=== PATIENT | male | born 1955 | race Caucasian/White ===

== ENCOUNTER 2017-10-16 00:24 | Inpatient (IN) | payer SELFPAY ==
[2017-10-16] MEDS ORDERED: Pantoprazole 40 MG VIAL ONE (00:53)
[2017-10-16] MEDS ORDERED: Fentanyl 100 MCG/2 ML VIAL ONE (00:55)
[2017-10-16] MEDS ORDERED: Midazolam HCl 2 mg/2 ml Vial ONE (00:55)
[2017-10-16 01:00] LABS: #Basophils 0.1 thou/uL (0.0-0.2); #Eosinphils 0.1 thou/uL (0.0-0.7); #Lymphocytes 0.9 thou/uL (1.20-3.40); #Monocytes 0.6 thou/uL (0.11-0.59); #Neutrophils 8.9 thou/uL (1.40-6.50); %Basophils 1.1 % (0.0-1.0); %Eosinophils 1.3 % (0.0-10.0); %Lymphocytes 8.7 % (21.0-51.0); %Monocytes 5.7 % (0.0-10.0); %Neutrophils 83.2 % (42.0-75.0); Hemoglobin 13.4 g/dL (14.0-18.0); Mean Corpuscular HGB CONC 32.3 g/dL (32.0-36.0); Mean Corpuscular Hemoglobin 31.8 pg (27.0-31.0); Mean Corpuscular Volume 98.4 fl (80.0-94.0); Mean Platelet Volume 6.9 fL (7.4-10.4); Platelet Count 181 thou/uL (130-400); RBC Distribution Width 12.9 % (11.5-14.5); Red Blood Cell (RBC) Count 4.21 mill/uL (4.70-6.10); White Blood Cell (WBC) Count 10.7 thou/uL (4.8-10.8)
[2017-10-16 01:06] LABS: INR-International Normal Ratio 1.2; PTT 23.9 SEC (22.9-36.1)
[2017-10-16] MEDS ORDERED: Piperacillin-Tazo-Dextrose,Iso 3.375 GM in Premix Bag 1 BAG IVPB SCH (01:15)
[2017-10-16 01:16] LABS: ALT (SGPT) 16 U/L (8-55); AST (SGOT) 20 U/L (5-34); Albumin 3.7 g/dL (3.5-5.0); Alkaline Phosphatase 50 U/L (40-150); Anion Gap 10 mmol/L (10-20); BUN (Urea Nitrogen) 11 mg/dL (8.4-25.7); Bilirubin, Total 0.7 mg/dL (0.2-1.2); Calc. Creatinine Clearance 0 mL/min (70-130); Calcium 9.5 mg/dL (7.8-10.44); Carbon Dioxide 36 mmol/L (22-29); Chloride 93 mmol/L (98-107); Estimated GFR-MDRD Greater than 90; Glucose 123 mg/dL (70-105); Potassium 4.5 mmol/L (3.5-5.1); Sodium 134 mmol/L (136-145)
[2017-10-16 01:20] LABS: Globulin 2.1 g/dL (2.4-3.5); Protein, Total 5.7 g/dL (6.0-8.3)
[2017-10-16] MEDS ORDERED: Ondansetron HCl/PF 4 MG/2 ML Vial IVP PRN ×2 (03:13→15:54)
[2017-10-16] MEDS ORDERED: Promethazine HCl 25 MG/ML VIAL IM PRN (03:13)
[2017-10-16] MEDS ORDERED: Morphine 4 MG/ML Carpuject SLOW IVP PRN (03:13)
[2017-10-16] MEDS ORDERED: Acetaminophen 1,000 MG in Premix Bag 1 BAG IVPB PRN (03:13)
[2017-10-16] MEDS ORDERED: Dextrose 5% in Water 1,000 ML IV PRN (03:13)
[2017-10-16] MEDS ORDERED: Morphine 4 MG/ML Carpuject IVP PRN (03:13)
[2017-10-16] MEDS ORDERED: Ondansetron ODT 4 MG TAB PO PRN (03:13)
[2017-10-16] MEDS ORDERED: Dextrose 50% Abboject 50 ML SYRINGE SLOW IVP PRN (03:13)
[2017-10-16 03:25] VITALS: BMI 19.8
[2017-10-16] MEDS ORDERED: Pantoprazole 40 MG VIAL IVP SCH (03:30)
[2017-10-16 04:03] LABS: #Eosinphils 0.1 thou/uL (0.0-0.7); #Lymphocytes 1.1 thou/uL (1.20-3.40); #Monocytes 0.7 thou/uL (0.11-0.59); #Neutrophils 6.5 thou/uL (1.40-6.50); %Basophils 0.6 % (0.0-1.0); %Eosinophils 1.8 % (0.0-10.0); %Lymphocytes 12.5 % (21.0-51.0); %Neutrophils 77.2 % (42.0-75.0); Hemoglobin 11.7 g/dL (14.0-18.0); Mean Corpuscular HGB CONC 32.5 g/dL (32.0-36.0); Mean Corpuscular Hemoglobin 32.1 pg (27.0-31.0); Mean Corpuscular Volume 98.8 fl (80.0-94.0); Mean Platelet Volume 6.9 fL (7.4-10.4); Platelet Count 166 thou/uL (130-400); RBC Distribution Width 12.7 % (11.5-14.5); Red Blood Cell (RBC) Count 3.66 mill/uL (4.70-6.10); White Blood Cell (WBC) Count 8.4 thou/uL (4.8-10.8)
[2017-10-16 04:26] LABS: ALT (SGPT) 15 U/L (8-55); AST (SGOT) 16 U/L (5-34); Alkaline Phosphatase 43 U/L (40-150); Anion Gap 10 mmol/L (10-20); BUN (Urea Nitrogen) 10 mg/dL (8.4-25.7); Bilirubin, Total 0.7 mg/dL (0.2-1.2); Calc. Creatinine Clearance 116 mL/min (70-130); Calcium 8.8 mg/dL (7.8-10.44); Carbon Dioxide 33 mmol/L (22-29); Chloride 96 mmol/L (98-107); Estimated GFR-MDRD Greater than 90; Globulin 1.9 g/dL (2.4-3.5); Glucose 119 mg/dL (70-105); Potassium 4.6 mmol/L (3.5-5.1); Protein, Total 4.9 g/dL (6.0-8.3); Sodium 134 mmol/L (136-145)
[2017-10-16] MEDS: D5 1/2 NS w/20 mEq KCL 1,000 ML IV SCH ×2 (05:00→10:39)
[2017-10-16] MEDS: Nicotine 14 MG PATCH TD SCH (08:56)
[2017-10-16] MEDS ORDERED: PROVENTIL INHALER 6.7 G (200 INHALATIONS) INH PRN (10:00)
--- NOTE | 2017-10-16 10:05 | HP ---
CHIEF COMPLAINT: Abdominal bloating. HISTORY OF PRESENT ILLNESS: This is a 62-year-old male who was transferred to [facility] last night from [facility] with a diagnosis of perforated gastric ulcer with intraabdominal hemorrhage. He prese nted here now and he was seen by me in the middle of the night and hemodynamically stable, mild diffu se abdominal pain, but normal hemoglobin and normal WBC count. Review of the CT by myself revealed q uestion of mesenteric mass, certainly a lot of ascites some of which looks bloody, but no significant free air. Because of his stable clinical state, he was admitted to the hospital for further workup. Mr. Tabares notes that he does take Aleve every morning and occasional ibuprofen. He mostly takes medicines for his COPD including Advair, Spiriva and albuterol. He notes that he has been more bloat ed over the last few weeks and had to get some larger size pants. He also notes more fluid retention in his lower extremities. Dr. Adam, primary care physician has actually put him on a fluid retentio n pill just within the last few weeks. The patient's pain is described as 5/10 diffuse mildly tender . He is hungry though this morning and does have no nausea or vomiting. He has been hemodynamically stable overnight. PAST MEDICAL HISTORY: Again includes COPD, hypertension, and fluid retention. PAST SURGICAL HISTORY: He denies. MEDICINES TAKEN DAILY: Spiriva, Advair, albuterol, losartan, Lasix, glaucoma drops. ALLERGIES: No known drug allergies. SOCIAL HISTORY: He is a smoker. Occasional alcohol, no other drugs. REVIEW OF SYSTEMS: Otherwise, negative. PHYSICAL EXAMINATION: VITAL SIGNS: Blood pressure 137/86, pulse is 69, respirations 18, temperature 98.3. HEENT: Sclerae are anicteric. Oropharynx clear. NECK: No lymphadenopathy. CHEST: Clear. HEART: Regular rate and rhythm. ABDOMEN: Diffusely distended and mildly tender without guarding or rebound. No abdominal or inguina l hernias. EXTREMITIES: 2+ pitting edema to bilateral lower extremities. LABORATORY DATA: White blood cell count is 8, hemoglobin 11.7, platelet count is 166. No bands. IN R 1.2, sodium 134, potassium 4.6, creatinine is 0.65, glucose 119, alkaline phosphatase 43. Liver fu nction tests otherwise normal. IMAGING DATA AND LABORATORY DATA: CT scan reviewed with Dr. Rosario. There is a question of muco praveena abnormality in the distal stomach. There is no free air. There is significant amount of free fl uid in the abdomen. There is a large mid mesenteric mass/hematoma without active extravasation. ASSESSMENT: Unknown etiology of this large amount of fluid, questionable mesenteric mass. There wer e some findings suggestive on the CT of a perforated gastric ulcer, although he does not have periton itis. He is not hemodynamically unstable and there is no free air. He does have a history of progre ssive abdominal distention, but no known history of cirrhosis. PLAN: We will have GI see him today, suspect he needs upper endoscopy at least to rule out mucosal a bnormality in the stomach. If that is negative, he needs a workup for intraabdominal malignancy.
[2017-10-16] MEDS: Mometasone/Formoterol 120 PUFF INHALER INH SCH (11:28)
[2017-10-16] MEDS: Ipratropium Bromide 2.5 ml Neb NEB SCH ×2 (11:28→20:11)
[2017-10-16] MEDS ORDERED: Lidocaine 1% PF 5 ML VIAL ONE (14:25)
[2017-10-16] MEDS ORDERED: Propofol 200 MG/20 ML VIAL ONE (14:25)
--- NOTE | 2017-10-16 15:43 | CON ---
DATE OF CONSULTATION: 10/16/2017 REASON FOR CONSULTATION: Midepigastric abdominal pain, possible gastric perforation. CONSULTING PHYSICIAN: Dinh Renee M.D. HISTORY OF PRESENT ILLNESS: The patient is a 62-year-old male with past medical history of COPD and hypertension, presenting with complaints of increased midepigastric abdominal pain. He states that he was in his usual state of health until approximately 2 days ago when he had the acute onset of mid epigastric/right upper quadrant abdominal pain that occurred within 3 hours of him eating lunch. He described the pain as cramping type pain, constant, nonradiating with severity of approximately 7-8/10. There were no clear exacerbating or alleviating factors associated with his pain; however, he does endorse increased heartburn over the last week, which he has been taking Tums as needed. He also endorses increased lower extremity swelling that has been present for the last 3-4 months, for which his PCP had given him diuretics. Currently, he denies any nausea, vomiting, fevers, chills, odynophagia, dysphagia, diarrhea, or constipation. Of note, he had also been taking Aleve and ibuprofen (undetermined amounts) for pain over the last 1-2 months, although he had not been taking these medications concurrently. REVIEW OF SYSTEMS: A 12-category review of systems was obtained with all responses negative except for the pertinent positives as listed in the HPI. PAST MEDICAL HISTORY: COPD, hypertension, lower extremity edema. PAST SURGICAL HISTORY: Right foot surgery. FAMILY HISTORY: Small cell lung cancer (father). SOCIAL HISTORY: Has decreased to smoking one cigar daily. Drinks approximately 2-4 beers daily. Denies any illicit drug use. OUTPATIENT MEDICATIONS: Spiriva, Advair, albuterol, losartan, Lasix, and glaucoma drops. ALLERGIES: No known drug allergies. PHYSICAL EXAMINATION: VITAL SIGNS: Temperature of 97.9, pulse 69, blood pressure 150/78, respiratory rate 20, satting 95% on room air. GENERAL: The patient is lying comfortably in bed, in no acute distress. He is alert and oriented x4. HEENT: Normocephalic, atraumatic. NECK: Supple. No JVD noted. CARDIOVASCULAR: Regular rate and rhythm with no discernible murmurs, gallops or rubs. RESPIRATORY: Clear to auscultation bilaterally with no discernible wheezes or rales. ABDOMEN: Soft, normoactive bowel sounds, increased tenderness to palpation in the midepigastric and periumbilical regions with mild to moderate distention noted that is tympanic to percussion. No guarding or rebound. EXTREMITIES: 2+ bilateral lower extremity edema to mid elder. LABORATORY DATA: CBC with white blood cell count of 8.4, hemoglobin 11.7, hematocrit 36.1, platelets 166. Chemistry with a sodium of 134, potassium 4.6, chloride 96, CO2 33, BUN 10, creatinine 0.65, glucose 119, AST 16, ALT 15, alkaline phosphatase 43, total bilirubin 0.7. IMAGING STUDIES: CT scan showing moderate wall thickness of the distal gastric body and antrum with possibility of mucosal abnormality in the distal stomach. There is no evidence of free air; however, there is a significant amount of free fluid in the abdomen. Also noted a large mid mesenteric mass/hematoma without active extravasation with the free fluid concerning for hemorrhage. ASSESSMENT AND PLAN: The patient is a 62-year-old male with past medical history of COPD and hypertension, presenting with midepigastric/right upper quadrant abdominal pain and imaging findings concerning for a mesenteric mass. Midepigastric abdominal pain The patient is presenting with a recent history of acute onset of mid epigastric /right upper quadrant abdominal pain associated with increased abdominal distention as well as a history of substernal pyrosis and lower extremity edema. He also endorses a history of recent nonsteroidal antiinflammatory drugs abuse which could potentially create gastritis and/or ulceration of the stomach with the CT scan showing mucosal abnormalities within the distal stomach and also lends itself towards a possible ulceration due to nonsteroidal antiinflammatory drugs use versus other process; however, also on the CT scan with a large mid mesenteric mass concerning either for possible malignancy or hematoma, which could be potentially contributing to his midepigastric abdominal pain. The CT scans are not necessarily consistent with a perforated gastric ulcer, although that cannot be ruled out at this time. Also, per laboratory review, he has a normal platelet count as well as normal transaminase and normal T-bilirubin which puts a diagnosis of cirrhosis further down on the list. RECOMMENDATIONS: 1. We will plan for EGD today for intraluminal evaluation of the stomach and possible gastric ulcer and/or perforation. 2. We would consider paracentesis of the intra-abdominal fluid for evaluation to determine if this is ascites versus hematoma/hemorrhage. 3. Would consider exploratory laparoscopy for determination of large mid mesenteric mass and/or with biopsy. 4. Pain control per primary team. MTDD
--- NOTE | 2017-10-16 16:09 | OP ---
DATE OF PROCEDURE: 10/16/2017 PROCEDURE: Esophagogastroduodenoscopy with biopsy. INDICATION FOR PROCEDURE: Midepigastric abdominal pain, abnormal GI imaging. DESCRIPTION OF PROCEDURE: After the risks and benefits of the procedure were explained to the patient including risks of bleeding, infection, perforation, reaction to anesthesia and/or pain, informed consent was obtained. The patient was then taken back to the endoscopy suite where deep sedation with propofol was administered via anesthesia support. The standard gastroscope was then advanced into the mouth with intubation of the esophagus, stomach and proximal small bowel with the findings listed below. The patient tolerated the procedure well with no immediate postoperative complications. FINDINGS: ESOPHAGUS: Normal appearing mucosa was seen in the proximal, mid and distal esophagus. The diaphragmatic pinch was seen at 48 cm while the GE junction was well seen at approximately 45 cm past the incisors denoting a 3 cm hiatal hernia. There was no evidence of esophagitis, erosions, ulcerations, or mass lesions. STOMACH: Normal appearing mucosa was seen in the cardia, fundus, body, antrum and incisura. However, along the greater curvature in the body of the stomach, there was extrinsic compression denoted by bulging mucosa into the lumen of the stomach. There were no associated erosions, ulcerations, mass lesions or perforation with this extrinsic compression. Additional abnormal findings were not seen in the remainder of the stomach. DUODENUM: Nodular appearing mucosa was seen in the duodenal bulb without associated erythema, erosions or ulcerations. In the second portion of the duodenum, the mucosa displayed mildly increased erythema as well as a bluish tinge underlying erythema concerning for pathology. Multiple biopsies were taken of this region and placed in a specimen jar for evaluation. Otherwise, there were no erosions, ulcerations, or mass lesions seen during this portion of the exam. IMPRESSION: 1. Mild mucosal erythema and bluish tinge to mucosa seen in the second portion of the duodenum, status post biopsies. 2. Mild nodularity of the duodenal bulb, consistent with Meg's gland hyperplasia. 3. Extrinsic compression of the gastric body from unknown etiology. 4. A 3 cm hiatal hernia. RECOMMENDATIONS: 1. Follow with primary inpatient team. 2. Would consider exploratory laparoscopy for determination of the mesenteric mass which could be potentially compressing the greater curvature of the stomach. 3. Can consider continuation of PPI 40 mg daily for acid reflux. 4. We will defer to primary team about continuation of antibiotics given lack of evidence of gastric perforation on examination today. 5. We will follow up on biopsy results. [facility]
[2017-10-16] MEDS: Timolol 0.5% Ophth Soln 5 ml Bottle EA EYE SCH (21:25)
[2017-10-16] MEDS: Pantoprazole 40 MG VIAL IVP SCH (21:48)
--- NOTE | 2017-10-16 22:13 | ULT ---
ULTRASOUND ABDOMEN LIMITED 10/16/17 HISTORY: Evaluate for fluid for paracentesis. COMPARISON: Outside facility CT. FINDINGS: There is trace free fluid in the abdomen. There appears to be a soft tissue mass or hematoma in the m idline measuring 11 x 3 x 7 cm. IMPRESSION: Insufficient fluid for paracentesis. POS: [facility]
[2017-10-17] MEDS: Ipratropium Bromide 2.5 ml Neb NEB SCH ×4 (00:30→21:04)
[2017-10-17] MEDS: D5 1/2 NS w/20 mEq KCL 1,000 ML IV SCH ×2 (01:37→01:49)
[2017-10-17] MEDS: Mometasone/Formoterol 120 PUFF INHALER INH SCH ×2 (06:37→21:03)
[2017-10-17] MEDS: Fluticasone Propionate Nasal Spray 16 gm Bottle NASAL SCH (08:46)
[2017-10-17] MEDS: Nicotine 14 MG PATCH TD SCH (08:47)
[2017-10-17] MEDS ORDERED: D5 1/2 NS w/20 mEq KCL 1,000 ML IV SCH (08:48)
[2017-10-17] MEDS: Timolol 0.5% Ophth Soln 5 ml Bottle EA EYE SCH ×2 (08:49→22:30)
--- NOTE | 2017-10-17 08:50 | PDOC.GSPN ---
Surgery Progress Note: Subj - Subjective Patient reports: no new complaints (Still complaining of bloating) Surgery Progress Note: Obj - Vital signs Vital signs: Vital Signs - Most Recent Temp Pulse Resp BP Pulse Ox 98.1 F 65 16 150/85 H 93 L 10/17/17 07:34 10/17/17 07:34 10/17/17 07:34 10/17/17 07:34 10/17/17 07:34 - Physical Exam General: no distress Abdomen: other (moderately distended, fluid present, diffusely mildly tender without rebound) Surgery Progress Note: Results - Labs Result Diagrams: 10/16/17 03:26 10/16/17 03:26 Lab results: Laboratory Results WBC 8.4 thou/uL (4.8-10.8) 10/16/17 03:26 RBC 3.66 mill/uL (4.70-6.10) L 10/16/17 03:26 Hgb 11.7 g/dL (14.0-18.0) L 10/16/17 03:26 Hct 36.1 % (42.0-52.0) L 10/16/17 03:26 MCV 98.8 fl (80.0-94.0) H 10/16/17 03:26 MCH 32.1 pg (27.0-31.0) H 10/16/17 03:26 MCHC 32.5 g/dL (32.0-36.0) 10/16/17 03:26 RDW 12.7 % (11.5-14.5) 10/16/17 03:26 Plt Count 166 thou/uL (130-400) 10/16/17 03:26 MPV 6.9 fL (7.4-10.4) L 10/16/17 03:26 Neutrophils % 77.2 % (42.0-75.0) H 10/16/17 03:26 Lymphocytes % 12.5 % (21.0-51.0) L 10/16/17 03:26 Monocytes % 8.0 % (0.0-10.0) 10/16/17 03:26 Eosinophils % 1.8 % (0.0-10.0) 10/16/17 03:26 Basophils % 0.6 % (0.0-1.0) 10/16/17 03:26 Neutrophils # 6.5 thou/uL (1.40-6.50) 10/16/17 03:26 Lymphocytes # 1.1 thou/uL (1.20-3.40) L 10/16/17 03:26 Monocytes # 0.7 thou/uL (0.11-0.59) H 10/16/17 03:26 Eosinophils # 0.1 thou/uL (0.0-0.7) 10/16/17 03:26 Basophils # 0.0 thou/uL (0.0-0.2) 10/16/17 03:26 PT 15.0 SEC (12.0-14.7) H 10/16/17 00:33 INR 1.2 10/16/17 00:33 APTT 23.9 SEC (22.9-36.1) 10/16/17 00:33 Sodium 134 mmol/L (136-145) L 10/16/17 03:26 Potassium 4.6 mmol/L (3.5-5.1) 10/16/17 03:26 Chloride 96 mmol/L (98-107) L 10/16/17 03:26 Carbon Dioxide 33 mmol/L (22-29) H 10/16/17 03:26 Anion Gap 10 mmol/L (10-20) 10/16/17 03:26 BUN 10 mg/dL (8.4-25.7) 10/16/17 03:26 Creatinine 0.65 mg/dL (0.6-1.3) 10/16/17 03:26 Estimated GFR (MDRD) Greater than 90 10/16/17 03:26 Glucose 119 mg/dL (70-105) H 10/16/17 03:26 Calcium 8.8 mg/dL (7.8-10.44) 10/16/17 03:26 Total Bilirubin 0.7 mg/dL (0.2-1.2) 10/16/17 03:26 AST 16 U/L (5-34) 10/16/17 03:26 ALT 15 U/L (8-55) 10/16/17 03:26 Alkaline Phosphatase 43 U/L (40-150) 10/16/17 03:26 Serum Total Protein 4.9 g/dL (6.0-8.3) L 10/16/17 03:26 Albumin 3.0 g/dL (3.5-5.0) L 10/16/17 03:26 Globulin 1.9 g/dL (2.4-3.5) L 10/16/17 03:26 Albumin/Globulin Ratio 1.6 g/dL (1.2-2.2) 10/16/17 03:26 Surgery Progress Note: A/P - Problem (1) Abdominal mass Current Visit: Yes Code(s): R19.00 - INTRA-ABD AND PELVIC SWELLING, MASS AND LUMP, UNSP SITE Status: Acute Assessment and Plan: Differential includes malignancy, infection, spontaneous hemorrhage. Plan diagnostic laparoscopy tomorrow for sampling of ascites and biopsy of mass if present (2) Ascites Current Visit: Yes Code(s): R18.8 - OTHER ASCITES Status: Acute
[2017-10-17] MEDS ORDERED: FLU VACC QS2017-18 36 mo. & older 0.5 ML SYRINGE IM ONE (09:00)
[2017-10-17] MEDS ORDERED: Spiriva 18 MCG CAP (Box of 5 Caps) INH SCH (09:00)
[2017-10-17 09:05] LABS: #Eosinphils 0.3 thou/uL (0.0-0.7); #Lymphocytes 0.9 thou/uL (1.20-3.40); #Monocytes 0.6 thou/uL (0.11-0.59); #Neutrophils 3.8 thou/uL (1.40-6.50); %Basophils 0.7 % (0.0-1.0); %Eosinophils 6.3 % (0.0-10.0); %Lymphocytes 15.3 % (21.0-51.0); %Neutrophils 67.8 % (42.0-75.0); Hemoglobin 10.8 g/dL (14.0-18.0); Mean Corpuscular HGB CONC 31.8 g/dL (32.0-36.0); Mean Corpuscular Hemoglobin 31.4 pg (27.0-31.0); Mean Corpuscular Volume 98.7 fl (80.0-94.0); Mean Platelet Volume 6.5 fL (7.4-10.4); Platelet Count 170 thou/uL (130-400); RBC Distribution Width 12.4 % (11.5-14.5); Red Blood Cell (RBC) Count 3.42 mill/uL (4.70-6.10); White Blood Cell (WBC) Count 5.6 thou/uL (4.8-10.8)
--- NOTE | 2017-10-17 21:34 | PRG ---
DATE OF SERVICE: 10/17/2017 SUBJECTIVE: The patient states that he is doing better today with decreased abdominal pain when comp ared to previous. Currently, he denies any nausea, vomiting, fevers, chills, shortness of breath, he matemesis, melena, or hematochezia. OBJECTIVE: VITAL SIGNS: Temperature 97.9, pulse 73, blood pressure 120/85, respiratory rate 18, satting 96% on room air. GENERAL: The patient was sitting up in a chair, in no acute distress. He is alert and oriented x4. CARDIOVASCULAR: Regular rate and rhythm with no discernible murmurs, gallops, or rubs. RESPIRATORY: Clear to auscultation bilaterally with no discernible wheezes or rales. ABDOMEN: Normoactive bowel sounds, soft, nondistended but increased tenderness to palpation in the m idepigastric and periumbilical region. ASSESSMENT AND PLAN: The patient is a 62-year-old male with past medical history of chronic obstruct hermila pulmonary disease and hypertension presenting with midepigastric/right upper quadrant abdominal p ain with imaging findings consistent with a mesenteric mass. Midepigastric abdominal pain. The patient presented with acute onset of midepigastric right upper qu adrant abdominal pain associated with substernal pyrosis, lower extremity edema, and increased abdomi nal distention. He subsequently sought healthcare assistance with imaging at that time concerning fo r possible perforated gastric ulceration. He subsequently underwent EGD on 10/16/2017 with relativel y normal findings within the stomach, however, did exhibit extrinsic compression of the greater curva ture of the stomach. At this time, the CT scan also showed the presence of a mesenteric mass which c ould be providing extrinsic compression to the greater curvature of the stomach and furthermore contr ibuting to his abdominal pain. Paracentesis was attempted earlier today to obtain fluid within the a bdomen, but there was no pocket big enough to safely tap. At this point, exploratory laparotomy woul d be recommended for evaluation of the mesenteric mass with possible biopsy for determination of sour ce. RECOMMENDATIONS: 1. Agree with the surgical team for exploratory laparoscopy for better characterization of the large mid mesenteric mass. 2. Pain control per primary team. We will sign off at this time. Please call with any additional questions.
[2017-10-17] MEDS: Pantoprazole 40 MG VIAL IVP SCH (22:30)
[2017-10-18] MEDS: Ipratropium Bromide 2.5 ml Neb NEB SCH ×4 (01:43→19:38)
[2017-10-18] MEDS: Fluticasone Propionate Nasal Spray 16 gm Bottle NASAL SCH (06:36)
[2017-10-18] MEDS: Timolol 0.5% Ophth Soln 5 ml Bottle EA EYE SCH ×2 (06:36→21:26)
[2017-10-18] MEDS: Mometasone/Formoterol 120 PUFF INHALER INH SCH ×2 (08:23→18:39)
[2017-10-18] MEDS: Nicotine 14 MG PATCH TD SCH (09:09)
[2017-10-18] MEDS ORDERED: Bupivacaine/Epinephrine 0.25% 30 ML VIAL ONE (09:42)
[2017-10-18] MEDS ORDERED: Fentanyl 100 MCG/2 ML VIAL ONE ×2 (09:45→14:59)
[2017-10-18] MEDS ORDERED: HYDROmorphone 0.5 MG/0.5 ML SYRINGE ONE (09:45)
[2017-10-18] MEDS ORDERED: CEFAZOLIN/Water 2 GM/20 ML SYRINGE ONE (09:56)
[2017-10-18] MEDS ORDERED: HYDROmorphone 2 MG/ML VIAL SLOW IVP PRN (12:38)
[2017-10-18] MEDS ORDERED: Promethazine HCl 25 MG/ML VIAL IM PRN ×3 (12:38→16:15)
[2017-10-18] MEDS ORDERED: Promethazine HCl 25 MG/ML VIAL SLOW IVP PRN (12:38)
[2017-10-18] MEDS ORDERED: Ondansetron HCl/PF 4 MG/2 ML Vial IVP PRN ×3 (12:38→16:15)
[2017-10-18] MEDS ORDERED: diphenhydrAMINE 50 MG/ML VIAL IVP PRN (13:26)
[2017-10-18] MEDS ORDERED: Zolpidem Tartrate 5 MG TAB PO PRN (13:26)
[2017-10-18] MEDS ORDERED: diphenhydrAMINE 50 MG/ML VIAL IM PRN (13:26)
[2017-10-18] MEDS ORDERED: HYDROmorphone 10 mg/100 ml CADD IVPB PRN (13:26)
[2017-10-18] MEDS ORDERED: diphenhydrAMINE 25 MG CAP PO PRN (13:26)
[2017-10-18] MEDS ORDERED: Naloxone HCl 0.4 mg/ml Vial IV PRN (13:26)
[2017-10-18] MEDS ORDERED: Communication Order-Pharmacy FS SCH (13:30)
[2017-10-18] MEDS ORDERED: Glycopyrrolate 0.2 MG/ML 5 ML SYRINGE ONE (13:56)
[2017-10-18] MEDS ORDERED: PHENYLEPHRINE-NS 100 MCG/ML 10 ML SYRINGE ONE (13:56)
[2017-10-18] MEDS ORDERED: Propofol 200 MG/20 ML VIAL ONE (13:56)
[2017-10-18] MEDS ORDERED: Ondansetron HCl/PF 4 MG/2 ML Vial ONE (13:56)
[2017-10-18] MEDS ORDERED: ePHEDrine/0.9% NaCl/PF SYRINGE 50 mg/10 ml ONE (13:56)
[2017-10-18] MEDS ORDERED: Dexamethasone 20 MG/5 ML VIAL ONE (13:56)
[2017-10-18] MEDS ORDERED: Lidocaine 1% PF 5 ML VIAL ONE (13:56)
[2017-10-18] MEDS ORDERED: Dextrose 5% in Water 1,000 ML IV PRN (16:15)
[2017-10-18] MEDS ORDERED: Lorazepam 2 MG/ML VIAL SLOW IVP PRN (16:15)
[2017-10-18] MEDS ORDERED: Acetaminophen 1,000 MG in Premix Bag 1 BAG IVPB PRN (16:15)
[2017-10-18] MEDS ORDERED: Dextrose 50% Abboject 50 ML SYRINGE SLOW IVP PRN (16:15)
[2017-10-18] MEDS ORDERED: Ondansetron ODT 4 MG TAB PO PRN (16:15)
[2017-10-18] MEDS: D5 1/2 NS w/20 mEq KCL 1,000 ML IV SCH ×2 (16:47→21:28)
[2017-10-18] MEDS: Pantoprazole 40 MG VIAL IVP SCH (21:26)
[2017-10-19] MEDS: Ipratropium Bromide 2.5 ml Neb NEB SCH ×4 (00:43→19:23)
[2017-10-19 04:16] LABS: #Neutrophils 7.2 thou/uL (1.40-6.50); %Basophils 0.1 % (0.0-1.0); %Eosinophils 0.4 % (0.0-10.0); %Lymphocytes 10.3 % (21.0-51.0); %Monocytes 10.7 % (0.0-10.0); %Neutrophils 78.5 % (42.0-75.0); Hemoglobin 10.7 g/dL (14.0-18.0); Mean Corpuscular HGB CONC 32.3 g/dL (32.0-36.0); Mean Corpuscular Hemoglobin 31.9 pg (27.0-31.0); Mean Corpuscular Volume 98.6 fl (80.0-94.0); Mean Platelet Volume 6.9 fL (7.4-10.4); Platelet Count 215 thou/uL (130-400); RBC Distribution Width 12.4 % (11.5-14.5); Red Blood Cell (RBC) Count 3.35 mill/uL (4.70-6.10); White Blood Cell (WBC) Count 9.2 thou/uL (4.8-10.8)
[2017-10-19 04:17] LABS: Anion Gap 8 mmol/L (10-20); BUN (Urea Nitrogen) 9 mg/dL (8.4-25.7); Calc. Creatinine Clearance 120 mL/min (70-130); Calcium 8.9 mg/dL (7.8-10.44); Carbon Dioxide 35 mmol/L (22-29); Chloride 96 mmol/L (98-107); Estimated GFR-MDRD Greater than 90; Glucose 135 mg/dL (70-105); Potassium 4.8 mmol/L (3.5-5.1); Sodium 134 mmol/L (136-145)
[2017-10-19] MEDS: D5 1/2 NS w/20 mEq KCL 1,000 ML IV SCH ×3 (06:42→20:29)
--- NOTE | 2017-10-19 07:56 | OP ---
DATE OF PROCEDURE: 10/18/2017 PREOPERATIVE DIAGNOSIS: Hemoperitoneum with question of mesenteric mass. POSTOPERATIVE DIAGNOSIS: Hemoperitoneum with question of mesenteric mass. PROCEDURE: 1. Exploratory laparotomy, biopsy of mesenteric and retroperitoneal lymph nodes. 2. Biopsy of peritoneal implants. 3. Abdominal washout. SURGEON: Dinh Renee M.D. ANESTHESIA: General. ESTIMATED BLOOD LOSS: 300 mL of old blood, no new blood. INDICATION: The patient is a 62-year-old male who presented with the belly full of fluid that was th ought to be blood. He had no history of trauma. He had a central mesenteric mass/hematoma. Attempt s at a paracentesis were unsuccessful. The fluid was not amenable to ultrasound guided drainage. He had an upper endoscopy by Dr. Mena with no intragastric pathology, no other history of malignancy. TECHNIQUE: The patient was taken to the operating room, placed supine on the table. After general a nesthetic was obtained, the abdomen was prepped and draped in a sterile fashion. A midline incision was made. The abdominal cavity was entered. There was a moderate amount of old appearing clotted blo od in the abdomen. This was irrigated out. He had no obvious carcinomatosis. His lesser sac was en tered to reveal no pathology to the anterior posterior wall of the stomach, pancreas showed no obviou s pathology. There was no ongoing bleeding from any major vessels such as the splenic artery or the superior mesenteric artery. There were no liver metastasis. There was no evidence of trauma to the spleen. There was no evidence of trauma to the liver. The small bowel was run from ligament of Trei tz to ileocecal valve. At the area of the ileocecal valve there were some peritoneal implants on the serosa of the small bowel. These were minor though, and not diffuse. They were shaved off of the s urface of the serosa, sent to Pathology for final diagnosis. The serosa was then oversewn using silk sutures. There was a significant amount of hematoma in the central mesenteric and tracking up along the right retroperitoneum. The right colon was mobilized along the white line of Toldt without evid ence of pathology. There was no obvious small bowel tumor. There was no obvious colon tumor. The m esenteric hematoma was entered during the mobilization and all this old clot was pulled out. There w as evidence of some lymphadenopathy in the central mesentery and in the area where there is some resi dual lymphoid tissue this was excised and sent to path for final diagnosis. There were a few borderl ine mesenteric lymph nodes that were excised and sent to pathology for final diagnosis. The abdomen was irrigated. There was no ongoing bleeding. Midline fascia closed using PDS. Skin was irrigated and closed using 3-0 Vicryl, 4-0 Monocryl, and Dermabond. The patient was en route to recovery in st able condition. All instrument counts, needle counts, and lap counts were correct.
[2017-10-19] MEDS: Mometasone/Formoterol 120 PUFF INHALER INH SCH ×2 (08:03→19:32)
[2017-10-19] MEDS: Nicotine 14 MG PATCH TD SCH (08:52)
[2017-10-19] MEDS: Timolol 0.5% Ophth Soln 5 ml Bottle EA EYE SCH ×2 (08:55→20:24)
[2017-10-19] MEDS: Fluticasone Propionate Nasal Spray 16 gm Bottle NASAL SCH (08:56)
[2017-10-19] MEDS: hydrALAZINE 20 MG/ML VIAL SLOW IVP PRN ×2 (12:09→18:53)
--- NOTE | 2017-10-19 13:51 | PDOC.GSPN ---
Surgery Progress Note: Subj - Subjective Narrative: Pain well controlled. No nausea Surgery Progress Note: Obj - Vital signs Vital signs: Vital Signs - Most Recent Temp Pulse Resp BP Pulse Ox 97.6 F 73 20 177/102 H 92 L 10/19/17 12:28 10/19/17 12:28 10/19/17 12:28 10/19/17 12:28 10/19/17 12:28 - Physical Exam General: no distress Abdomen: non tender, soft Wound: healing well Surgery Progress Note: Results - Labs Result Diagrams: 10/19/17 03:15 10/19/17 03:15 Lab results: Laboratory Results WBC 9.2 thou/uL (4.8-10.8) 10/19/17 03:15 RBC 3.35 mill/uL (4.70-6.10) L 10/19/17 03:15 Hgb 10.7 g/dL (14.0-18.0) L 10/19/17 03:15 Hct 33.0 % (42.0-52.0) L 10/19/17 03:15 MCV 98.6 fl (80.0-94.0) H 10/19/17 03:15 MCH 31.9 pg (27.0-31.0) H 10/19/17 03:15 MCHC 32.3 g/dL (32.0-36.0) 10/19/17 03:15 RDW 12.4 % (11.5-14.5) 10/19/17 03:15 Plt Count 215 thou/uL (130-400) 10/19/17 03:15 MPV 6.9 fL (7.4-10.4) L 10/19/17 03:15 Neutrophils % 78.5 % (42.0-75.0) H 10/19/17 03:15 Lymphocytes % 10.3 % (21.0-51.0) L 10/19/17 03:15 Monocytes % 10.7 % (0.0-10.0) H 10/19/17 03:15 Eosinophils % 0.4 % (0.0-10.0) 10/19/17 03:15 Basophils % 0.1 % (0.0-1.0) 10/19/17 03:15 Neutrophils # 7.2 thou/uL (1.40-6.50) H 10/19/17 03:15 Lymphocytes # 1.0 thou/uL (1.20-3.40) L 10/19/17 03:15 Monocytes # 1.0 thou/uL (0.11-0.59) H 10/19/17 03:15 Eosinophils # 0.0 thou/uL (0.0-0.7) 10/19/17 03:15 Basophils # 0.0 thou/uL (0.0-0.2) 10/19/17 03:15 PT 15.0 SEC (12.0-14.7) H 10/16/17 00:33 INR 1.2 10/16/17 00:33 APTT 23.9 SEC (22.9-36.1) 10/16/17 00:33 Sodium 134 mmol/L (136-145) L 10/19/17 03:15 Potassium 4.8 mmol/L (3.5-5.1) 10/19/17 03:15 Chloride 96 mmol/L (98-107) L 10/19/17 03:15 Carbon Dioxide 35 mmol/L (22-29) H 10/19/17 03:15 Anion Gap 8 mmol/L (10-20) L 10/19/17 03:15 BUN 9 mg/dL (8.4-25.7) 10/19/17 03:15 Creatinine 0.63 mg/dL (0.6-1.3) 10/19/17 03:15 Estimated GFR (MDRD) Greater than 90 10/19/17 03:15 Glucose 135 mg/dL (70-105) H 10/19/17 03:15 Calcium 8.9 mg/dL (7.8-10.44) 10/19/17 03:15 Total Bilirubin 0.7 mg/dL (0.2-1.2) 10/16/17 03:26 AST 16 U/L (5-34) 10/16/17 03:26 ALT 15 U/L (8-55) 10/16/17 03:26 Alkaline Phosphatase 43 U/L (40-150) 10/16/17 03:26 Serum Total Protein 4.9 g/dL (6.0-8.3) L 10/16/17 03:26 Albumin 3.0 g/dL (3.5-5.0) L 10/16/17 03:26 Globulin 1.9 g/dL (2.4-3.5) L 10/16/17 03:26 Albumin/Globulin Ratio 1.6 g/dL (1.2-2.2) 10/16/17 03:26 Surgery Progress Note: A/P - Problem (1) Abdominal mass Current Visit: Yes Code(s): R19.00 - INTRA-ABD AND PELVIC SWELLING, MASS AND LUMP, UNSP SITE Status: Acute (2) Ascites Current Visit: Yes Code(s): R18.8 - OTHER ASCITES Status: Acute - Plan Plan: Try clears. Encouraged ambulation. Continue APPLICATION SUPPORT TECHNICIAN till tomorrow. Await biopsy results of intraabd nodes
[2017-10-19] MEDS: Pantoprazole 40 MG VIAL IVP SCH (20:29)
[2017-10-20] MEDS: Ipratropium Bromide 2.5 ml Neb NEB SCH ×4 (01:10→18:54)
[2017-10-20] MEDS: Mometasone/Formoterol 120 PUFF INHALER INH SCH ×2 (06:46→18:52)
[2017-10-20] MEDS: hydrALAZINE 20 MG/ML VIAL SLOW IVP PRN ×2 (07:49→21:04)
[2017-10-20] MEDS: Timolol 0.5% Ophth Soln 5 ml Bottle EA EYE SCH ×2 (07:51→21:05)
[2017-10-20] MEDS: Fluticasone Propionate Nasal Spray 16 gm Bottle NASAL SCH (07:51)
[2017-10-20] MEDS ORDERED: D5 1/2 NS w/20 mEq KCL 1,000 ML IV SCH (12:52)
--- NOTE | 2017-10-20 13:37 | PDOC.GSPN ---
Surgery Progress Note: Subj - Subjective Narrative: No complaints. No nausea Surgery Progress Note: Obj - Vital signs Vital signs: Vital Signs - Most Recent Temp Pulse Resp BP Pulse Ox 98 F 73 16 142/88 H 94 L 10/20/17 13:04 10/20/17 13:04 10/20/17 13:04 10/20/17 13:04 10/20/17 13:04 - Physical Exam General: no distress Respiratory: clear to auscultation Abdomen: non tender Wound: healing well Surgery Progress Note: Results - Labs Result Diagrams: 10/19/17 03:15 10/19/17 03:15 Lab results: Laboratory Results WBC 9.2 thou/uL (4.8-10.8) 10/19/17 03:15 RBC 3.35 mill/uL (4.70-6.10) L 10/19/17 03:15 Hgb 10.7 g/dL (14.0-18.0) L 10/19/17 03:15 Hct 33.0 % (42.0-52.0) L 10/19/17 03:15 MCV 98.6 fl (80.0-94.0) H 10/19/17 03:15 MCH 31.9 pg (27.0-31.0) H 10/19/17 03:15 MCHC 32.3 g/dL (32.0-36.0) 10/19/17 03:15 RDW 12.4 % (11.5-14.5) 10/19/17 03:15 Plt Count 215 thou/uL (130-400) 10/19/17 03:15 MPV 6.9 fL (7.4-10.4) L 10/19/17 03:15 Neutrophils % 78.5 % (42.0-75.0) H 10/19/17 03:15 Lymphocytes % 10.3 % (21.0-51.0) L 10/19/17 03:15 Monocytes % 10.7 % (0.0-10.0) H 10/19/17 03:15 Eosinophils % 0.4 % (0.0-10.0) 10/19/17 03:15 Basophils % 0.1 % (0.0-1.0) 10/19/17 03:15 Neutrophils # 7.2 thou/uL (1.40-6.50) H 10/19/17 03:15 Lymphocytes # 1.0 thou/uL (1.20-3.40) L 10/19/17 03:15 Monocytes # 1.0 thou/uL (0.11-0.59) H 10/19/17 03:15 Eosinophils # 0.0 thou/uL (0.0-0.7) 10/19/17 03:15 Basophils # 0.0 thou/uL (0.0-0.2) 10/19/17 03:15 PT 15.0 SEC (12.0-14.7) H 10/16/17 00:33 INR 1.2 10/16/17 00:33 APTT 23.9 SEC (22.9-36.1) 10/16/17 00:33 Sodium 134 mmol/L (136-145) L 10/19/17 03:15 Potassium 4.8 mmol/L (3.5-5.1) 10/19/17 03:15 Chloride 96 mmol/L (98-107) L 10/19/17 03:15 Carbon Dioxide 35 mmol/L (22-29) H 10/19/17 03:15 Anion Gap 8 mmol/L (10-20) L 10/19/17 03:15 BUN 9 mg/dL (8.4-25.7) 10/19/17 03:15 Creatinine 0.63 mg/dL (0.6-1.3) 10/19/17 03:15 Estimated GFR (MDRD) Greater than 90 10/19/17 03:15 Glucose 135 mg/dL (70-105) H 10/19/17 03:15 Calcium 8.9 mg/dL (7.8-10.44) 10/19/17 03:15 Total Bilirubin 0.7 mg/dL (0.2-1.2) 10/16/17 03:26 AST 16 U/L (5-34) 10/16/17 03:26 ALT 15 U/L (8-55) 10/16/17 03:26 Alkaline Phosphatase 43 U/L (40-150) 10/16/17 03:26 Serum Total Protein 4.9 g/dL (6.0-8.3) L 10/16/17 03:26 Albumin 3.0 g/dL (3.5-5.0) L 10/16/17 03:26 Globulin 1.9 g/dL (2.4-3.5) L 10/16/17 03:26 Albumin/Globulin Ratio 1.6 g/dL (1.2-2.2) 10/16/17 03:26 Flow Cytometry Interp 10/18/17 11:26 Surgery Progress Note: A/P - Problem (1) Abdominal mass Current Visit: Yes Code(s): R19.00 - INTRA-ABD AND PELVIC SWELLING, MASS AND LUMP, UNSP SITE Status: Acute Assessment and Plan: Biopsies pending at this time. Advance diet to Fulls, decrease IVF. (2) Ascites Current Visit: Yes Code(s): R18.8 - OTHER ASCITES Status: Acute
[2017-10-20] MEDS ORDERED: Losartan 25 MG TAB PO SCH (17:00)
[2017-10-20] MEDS: Nicotine 14 MG PATCH TD SCH (18:43)
[2017-10-20] MEDS: Pantoprazole 40 MG VIAL IVP SCH (21:04)
[2017-10-21] MEDS: Ipratropium Bromide 2.5 ml Neb NEB SCH ×5 (01:47→23:44)
[2017-10-21] MEDS: Mometasone/Formoterol 120 PUFF INHALER INH SCH ×2 (07:09→19:14)
[2017-10-21] MEDS: Losartan 25 MG TAB PO SCH (08:14)
[2017-10-21] MEDS: Fluticasone Propionate Nasal Spray 16 gm Bottle NASAL SCH (08:14)
[2017-10-21] MEDS: Nicotine 14 MG PATCH TD SCH (08:16)
[2017-10-21] MEDS: Timolol 0.5% Ophth Soln 5 ml Bottle EA EYE SCH ×2 (08:20→20:30)
[2017-10-21] MEDS ORDERED: Milk Of Magnesia 30 ML UDCUP PO ONE (09:55)
[2017-10-21] MEDS ORDERED: HYDROcodone/Acetaminophen 10/325 mg Tablet PO PRN ×2 (09:56)
[2017-10-21] MEDS ORDERED: Morphine 4 MG/ML Carpuject IVP PRN (09:56)
[2017-10-21] MEDS ORDERED: traMADol HCl 50 MG TAB PO PRN (09:59)
[2017-10-21] MEDS ORDERED: Morphine 2 MG/ML SYRINGE SLOW IVP PRN (10:53)
--- NOTE | 2017-10-21 13:09 | PDOC.GSPN ---
Surgery Progress Note: Subj - Subjective Narrative: Feels bloated. No bowel movement yet Surgery Progress Note: Obj - Vital signs Vital signs: Vital Signs - Most Recent Temp Pulse Resp BP Pulse Ox 97.7 F 76 15 148/87 H 91 L 10/21/17 11:58 10/21/17 11:58 10/21/17 11:58 10/21/17 11:58 10/21/17 11:58 - Physical Exam General: no distress Respiratory: clear to auscultation Abdomen: non tender, soft Wound: healing well Surgery Progress Note: Results - Labs Result Diagrams: 10/19/17 03:15 10/19/17 03:15 Lab results: Laboratory Results WBC 9.2 thou/uL (4.8-10.8) 10/19/17 03:15 RBC 3.35 mill/uL (4.70-6.10) L 10/19/17 03:15 Hgb 10.7 g/dL (14.0-18.0) L 10/19/17 03:15 Hct 33.0 % (42.0-52.0) L 10/19/17 03:15 MCV 98.6 fl (80.0-94.0) H 10/19/17 03:15 MCH 31.9 pg (27.0-31.0) H 10/19/17 03:15 MCHC 32.3 g/dL (32.0-36.0) 10/19/17 03:15 RDW 12.4 % (11.5-14.5) 10/19/17 03:15 Plt Count 215 thou/uL (130-400) 10/19/17 03:15 MPV 6.9 fL (7.4-10.4) L 10/19/17 03:15 Neutrophils % 78.5 % (42.0-75.0) H 10/19/17 03:15 Lymphocytes % 10.3 % (21.0-51.0) L 10/19/17 03:15 Monocytes % 10.7 % (0.0-10.0) H 10/19/17 03:15 Eosinophils % 0.4 % (0.0-10.0) 10/19/17 03:15 Basophils % 0.1 % (0.0-1.0) 10/19/17 03:15 Neutrophils # 7.2 thou/uL (1.40-6.50) H 10/19/17 03:15 Lymphocytes # 1.0 thou/uL (1.20-3.40) L 10/19/17 03:15 Monocytes # 1.0 thou/uL (0.11-0.59) H 10/19/17 03:15 Eosinophils # 0.0 thou/uL (0.0-0.7) 10/19/17 03:15 Basophils # 0.0 thou/uL (0.0-0.2) 10/19/17 03:15 PT 15.0 SEC (12.0-14.7) H 10/16/17 00:33 INR 1.2 10/16/17 00:33 APTT 23.9 SEC (22.9-36.1) 10/16/17 00:33 Sodium 134 mmol/L (136-145) L 10/19/17 03:15 Potassium 4.8 mmol/L (3.5-5.1) 10/19/17 03:15 Chloride 96 mmol/L (98-107) L 10/19/17 03:15 Carbon Dioxide 35 mmol/L (22-29) H 10/19/17 03:15 Anion Gap 8 mmol/L (10-20) L 10/19/17 03:15 BUN 9 mg/dL (8.4-25.7) 10/19/17 03:15 Creatinine 0.63 mg/dL (0.6-1.3) 10/19/17 03:15 Estimated GFR (MDRD) Greater than 90 10/19/17 03:15 Glucose 135 mg/dL (70-105) H 10/19/17 03:15 Calcium 8.9 mg/dL (7.8-10.44) 10/19/17 03:15 Total Bilirubin 0.7 mg/dL (0.2-1.2) 10/16/17 03:26 AST 16 U/L (5-34) 10/16/17 03:26 ALT 15 U/L (8-55) 10/16/17 03:26 Alkaline Phosphatase 43 U/L (40-150) 10/16/17 03:26 Serum Total Protein 4.9 g/dL (6.0-8.3) L 10/16/17 03:26 Albumin 3.0 g/dL (3.5-5.0) L 10/16/17 03:26 Globulin 1.9 g/dL (2.4-3.5) L 10/16/17 03:26 Albumin/Globulin Ratio 1.6 g/dL (1.2-2.2) 10/16/17 03:26 Flow Cytometry Interp 10/18/17 11:26 Surgery Progress Note: A/P - Problem (1) Abdominal mass Current Visit: Yes Code(s): R19.00 - INTRA-ABD AND PELVIC SWELLING, MASS AND LUMP, UNSP SITE Status: Acute Assessment and Plan: Pathology shows no malignancy. Advance diet. Milk of magnesium. DC'd hardwood floor installation helper, start oral pain control (2) Ascites Current Visit: Yes Code(s): R18.8 - OTHER ASCITES Status: Acute
[2017-10-21] MEDS: Pantoprazole 40 MG VIAL IVP SCH (20:32)
[2017-10-22] MEDS: Mometasone/Formoterol 120 PUFF INHALER INH SCH ×2 (06:28→19:15)
[2017-10-22] MEDS: Ipratropium Bromide 2.5 ml Neb NEB SCH ×3 (06:45→19:17)
[2017-10-22] MEDS: Nicotine 14 MG PATCH TD SCH (07:55)
[2017-10-22] MEDS: Fluticasone Propionate Nasal Spray 16 gm Bottle NASAL SCH (07:58)
[2017-10-22] MEDS: Losartan 25 MG TAB PO SCH (07:58)
[2017-10-22] MEDS: Timolol 0.5% Ophth Soln 5 ml Bottle EA EYE SCH ×2 (07:59→20:27)
[2017-10-22] MEDS ORDERED: Milk Of Magnesia 30 ML UDCUP PO PRN (15:59)
[2017-10-22] MEDS ORDERED: traMADol HCl 50 MG TAB PO PRN (16:00)
--- NOTE | 2017-10-22 16:02 | PDOC.GSPN ---
Surgery Progress Note: Subj - Subjective Narrative: Still no bowel movement but pain controlled. Not much appetite but no nausea. Surgery Progress Note: Obj - Vital signs Vital signs: Vital Signs - Most Recent Temp Pulse Resp BP Pulse Ox 97.6 F 70 16 120/81 95 10/22/17 15:19 10/22/17 15:19 10/22/17 15:19 10/22/17 15:19 10/22/17 15:19 - Physical Exam General: no distress Cardiovascular: regular rate and rhythm Abdomen: soft, non tender, nondistended, positive bowel sounds Wound: healing well Surgery Progress Note: Results - Labs Result Diagrams: 10/19/17 03:15 10/19/17 03:15 Surgery Progress Note: A/P - Problem (1) Abdominal mass Current Visit: Yes Code(s): R19.00 - INTRA-ABD AND PELVIC SWELLING, MASS AND LUMP, UNSP SITE Status: Acute Assessment and Plan: Doing well after ex lap. All path negative. Home when distention better. (2) Ascites Current Visit: Yes Code(s): R18.8 - OTHER ASCITES Status: Acute
[2017-10-22] MEDS: Enoxaparin Sodium 40 MG/0.4 ML SYRINGE SC SCH (20:20)
[2017-10-22] MEDS: Pantoprazole 40 MG VIAL IVP SCH (20:22)
[2017-10-22] MEDS: traMADol HCl 50 MG TAB PO PRN (20:41)
[2017-10-23] MEDS: Ipratropium Bromide 2.5 ml Neb NEB SCH ×3 (01:15→17:47)
[2017-10-23] MEDS: Mometasone/Formoterol 120 PUFF INHALER INH SCH ×2 (07:47→20:00)
[2017-10-23] MEDS: Polyethylene Glycol 3350 17 GM Packet PO SCH (08:48)
[2017-10-23] MEDS: Timolol 0.5% Ophth Soln 5 ml Bottle EA EYE SCH ×2 (08:48→20:38)
[2017-10-23] MEDS: Nicotine 14 MG PATCH TD SCH (08:49)
[2017-10-23] MEDS: Fluticasone Propionate Nasal Spray 16 gm Bottle NASAL SCH (08:49)
[2017-10-23] MEDS: Losartan 25 MG TAB PO SCH (08:49)
[2017-10-23] MEDS ORDERED: Acetaminophen 500 MG TAB PO PRN (10:52)
[2017-10-23] MEDS ORDERED: Ibuprofen 600 MG TAB PO PRN (10:52)
[2017-10-23] MEDS ORDERED: Albuterol Sulfate 2.5 mg/3 ml Neb NEB PRN ×2 (10:54→11:17)
--- NOTE | 2017-10-23 11:27 | PRG ---
DATE OF SERVICE: 10/23/2017 SUBJECTIVE: Mr. Tabares is doing well today. He has a long story and request regarding use of albut fredis, Advair, Naprosyn, and Zyrtec, some of the medication he normally takes. His morning routines a re disrupted because of lack of billing in the pharmacy. He has not had a bowel movement since his s urgery. He has not had any nausea or vomiting. He is tolerating his diet. OBJECTIVE: LUNGS: Clear to auscultation. CARDIAC: Regular rate and rhythm without murmur or gallop. ABDOMEN: Soft, nontender. Bowel sounds are present. ASSESSMENT AND PLAN: 1. We will plan respiratory consult to adjust his albuterol treatments and medications that are more agreeable to his mucous control. 2. Gastrointestinal function. Hopefully, home tomorrow. We will order MiraLax p.r.n. and Milk of Monica joyner.
[2017-10-23] MEDS ORDERED: Albuterol Sulfate 2.5 mg/3 ml Neb NEB SCH ×2 (14:30)
[2017-10-23] MEDS: traMADol HCl 50 MG TAB PO PRN (20:37)
[2017-10-23] MEDS: Enoxaparin Sodium 40 MG/0.4 ML SYRINGE SC SCH (20:38)
[2017-10-23] MEDS: Pantoprazole 40 MG VIAL IVP SCH (20:38)
[2017-10-23] MEDS ORDERED: Ipratropium Bromide 2.5 ml Neb NEB SCH (21:00)
[2017-10-24] MEDS ORDERED: Albuterol Sulfate 2.5 mg/3 ml Neb NEB SCH (07:00)
[2017-10-24] MEDS: Mometasone/Formoterol 120 PUFF INHALER INH SCH (07:18)
[2017-10-24] MEDS: Losartan 25 MG TAB PO SCH (09:13)
[2017-10-24] MEDS: Fluticasone Propionate Nasal Spray 16 gm Bottle NASAL SCH (09:13)
[2017-10-24] MEDS: Polyethylene Glycol 3350 17 GM Packet PO SCH (09:13)
[2017-10-24] MEDS: Nicotine 14 MG PATCH TD SCH (09:13)
[2017-10-24] MEDS: Timolol 0.5% Ophth Soln 5 ml Bottle EA EYE SCH (09:14)
[2017-10-24 15:36] VITALS: BP 131/84; TEMP 97.6
--- NOTE | 2017-10-24 15:49 | PRG ---
DATE OF SERVICE: 10/24/2017 Mr. Tabares is doing well today. He is passing flatus. He is tolerating his diet. OBJECTIVE: LUNGS: Clear to auscultation. CARDIAC: Regular rhythm without murmur or gallop. ABDOMEN: Soft, good bowel sounds, nontender, well-healed incision. Overall, he is doing well. Plan is to discharge him home today. He has tramadol for pain ordered an asael Olverafran as needed already written by Dr. Renee. He will follow up with Dr. Renee in approximate ly 2 weeks.
== END 2017-10-24 16:39 | disposition home or self-care (01) | DRG 356 ==
LOC: ERS 00:24 → SJJU 01:45
PROVIDERS: ADMIT Surgery; ATTEND Surgery
PROC: 0DB98ZX Excision of Duodenum, Via Natural or Artificial Opening Endoscopic, Diagnostic (ICD-10-PCS; 2017-10-16)
PROC: 07BB0ZX Excision of Mesenteric Lymphatic, Open Approach, Diagnostic (ICD-10-PCS; principal; 2017-10-18)
PROC: 0DC Gastrointestinal System, Extirpation (ICD-10-PCS; 2017-10-18)
PROC: 0WBH0ZX Excision of Retroperitoneum, Open Approach, Diagnostic (ICD-10-PCS; 2017-10-18)
DX: R19.09 Other intra-abdominal and pelvic swelling, mass and lump (principal); K66.1 Hemoperitoneum; K66.8 Other specified disorders of peritoneum; J44.9 Chronic obstructive pulmonary disease, unspecified; I10 Essential (primary) hypertension; F17.210 Nicotine dependence, cigarettes, uncomplicated; R59.0 Localized enlarged lymph nodes; K44.9 Diaphragmatic hernia without obstruction or gangrene; Z86.73 Personal history of transient ischemic attack (TIA), and cerebral infarction without residual deficits; K31.89 Other diseases of stomach and duodenum; L53.9 Erythematous condition, unspecified
CPT/HCPCS: 36415; 76705; 80048; 80053; 85025; 85610; 85730; 88184; 88304; 88305; 88312; 88341; 88342; 90471; 90682; 90732; 94640; 96365; 96375; C9113; G0008; G0009; J0360; J1100; J1170; J1650; J2001; J2250; J2270; J2405; J2543; J2704; J3010; J7611; J7620; J7644; Q2036